=== PATIENT | male | born 1930 | race Caucasian/White ===

== ENCOUNTER 2016-08-17 01:43 | Emergency (ER) | payer MEDICARE, OTHER ==
[~2016-08-17 01:43] MED LIST: CEPH500C3 PO; FERR324T4; GLIP5; HYDR10TA16; LASI20TA; LEXA10TA; OMEP20CA5; ONDA4TAB7 OR; POTA-267; PRIN20TA2; PROM25SU8 PO; SIMV20; TERA10CA3; TETANUS/DIPHTHERIA TOXOID ADULT 0.5 ML VIAL IM ONE; UNKNOWN BP MED
--- NOTE | 2016-08-17 03:35 | PD ---
HPI Chief Complaint: head injury Time Seen by Provider: 03:08 Travel History International Travel<30 days: No Contact w/Intl Traveler<30days: No Traveled to known affect area: No History of Present Illness HPI 86-year-old male complains of bleeding from the back of the head. Patient states that he fell while walking tonight. Patient states that he hit the back of the head. Patient denies loss of consciousness. Patient denies any headache. Patient states that he has abrasion the top of the back of her head. Patient denies any visual change. Patient states that he has nausea but no vomiting. Patient denies any neck pain. Patient denies any chest pain or shortness of breath. Patient denies abdominal pain. Patient denies any focal weakness or numbness of the extremity. Patient denies any other injury. Patient states that he is not up-to-date with TD booster. Patient has history hypertension, diabetes, dyslipidemia. Patient states that he is not on any blood thinner. PFSH Past Medical History Cancer: Yes (COLON) High Cholesterol: Yes Diabetes: Yes Diminished Hearing: Yes (BILAT) Hypertension: Yes Kidney Stones: Yes Past Surgical History Abdominal Surgery: Yes (APPENDECTOMY,CHOLECYSTECTOMY,COLON RESECTION) Appendectomy: Yes Cholecystectomy: Yes Tonsillectomy: Yes Social History Alcohol Use: No Tobacco Use: No Substance Use: No Allergies-Medications (Allergen,Severity, Reaction): Coded Allergies: Venofer (Verified Allergy, Severe, 11/11/11) Reported Meds & Prescriptions Reported Meds & Active Scripts Active Keflex (Cephalexin Monohydrate) 500 Mg Cap 1 Tab PO Q6 5 Days Phenergan (Promethazine HCl) 25 Mg Tab 12.5-25 Mg PO Q6HPRN FOR NAUSEA/VOMITING Ondansetron Odt (Ondansetron HCl) 4 Mg Tab 4 Mg OR Q6HPRN Reported [Unknown Bp Med] Lortab 10/500 (Acetaminophen/Hydrocodone Bitart) 10 Mg/500 Mg Tab Lexapro (Escitalopram Oxalate) 10 Mg Tab Glucotrol (Glipizide) 5 Mg Tab Ferrous Sulfate 325 Mg Tab Prinivil (Lisinopril) 20 Mg Tab Klor-Con 10 (Potassium Chloride) 10 Meq Tab Lasix (Furosemide) 20 Mg Tab Prilosec (Omeprazole) 20 Mg Capcr Hytrin (Terazosin HCl) 10 Mg Cap Zocor (Simvastatin) 20 Mg Tab Review of Systems General / Constitutional: No: Fever Eyes: No: Visual changes HENT: No: Headaches Cardiovascular: No: Chest Pain or Discomfort Respiratory: No: Shortness of Breath Gastrointestinal: No: Abdominal Pain Genitourinary: No: Dysuria Musculoskeletal: No: Pain Skin: No Rash Neurologic: No: Weakness Psychiatric: No: Depression Endocrine: No: Polydipsia Hematologic/Lymphatic: No: Easy Bruising Physical Exam Narrative GENERAL: Well-nourished, well-developed patient. SKIN: Warm and dry. HEAD: Normocephalic. Patient has an abrasion on the upper part on the occipital area of the scalp. No active bleeding. EYES: No scleral icterus. No injection or drainage. Pupils 3 mm equal reactive. NECK: Supple, trachea midline. No JVD or lymphadenopathy. CARDIOVASCULAR: Regular rate and rhythm without murmurs, gallops, or rubs. RESPIRATORY: Breath sounds equal bilaterally. No accessory muscle use. GASTROINTESTINAL: Abdomen soft, non-tender, nondistended. MUSCULOSKELETAL: No cyanosis, or edema. BACK: Nontender without obvious deformity. No CVA tenderness. Neurologic exam: Patient's awake and alert oriented 3. No obvious focal neurological deficit. Data Data Orders Ct Brain W/O Iv Contrast(Rout) (08/17/16 ) Tetanus/Diphtheria Tox Adult (Tetanus/Di (08/17/16 01:15) MDM Medical Decision Making Medical Screen Exam Complete: Yes Emergency Medical Condition: Yes Interpretation(s) 3:[address] scan of brain negative acute pathology. Differential Diagnosis Differential diagnosis including abrasion, skull fracture, intracranial hemorrhage. Narrative Course 86-year-old male with head injury. Status post fall. Examination shows abrasion to the scalp. Polysporin ointment with dressing applied. TD booster given. Diagnosis Primary Impression: Closed head injury Qualified Code: S09.90XA - Closed head injury, initial encounter Additional Impression: Scalp abrasion Qualified Code: S00.01XA - Scalp abrasion, initial encounter Additional Instructions: Wound care daily. Polysporin ointment with dressing daily. Soap and water wash daily. Head trauma instructions given. Follow-up with personal physician. Return as needed. Med/Other Pt SpecificInfo: No Change to Meds Disposition: DISCHARGE HOME Condition: Stable Hiram Nava MD Aug 17, 2016 03:35
--- NOTE | 2016-08-17 09:06 | RADRPT ---
EXAM DATE/TIME: 08/17/2016 02:21 [facility] COMPARISON: No previous studies available for comparison. INDICATIONS : Trauma; fall. Small contusion to the back of the head. RADIATION DOSE: 36.62 CTDIvol (mGy) MEDICAL HISTORY : unable to obtain SURGICAL HISTORY : unable to obtain ENCOUNTER: Initial ACUITY: 1 day PAIN SCALE: 4/10 LOCATION: cranial TECHNIQUE: Multiple contiguous axial images were obtained of the head. Using automated exposure control and adj ustment of the mA and/or kV according to patient size, radiation dose was kept as low as reasonably a chievable to obtain optimal diagnostic quality images. FINDINGS: CEREBRUM: The ventricles are normal for age. No evidence of midline shift, mass lesion, hemorrhage or acute in farction. No extra-axial fluid collections are seen. POSTERIOR FOSSA: The cerebellum and brainstem are intact. The 4th ventricle is midline. The cerebellopontine angle i s unremarkable. EXTRACRANIAL: The visualized portion of the orbits is intact. A small soft tissue hematoma is seen on the vertex po steriorly and SKULL: The calvaria is intact. No evidence of skull fracture. CONCLUSION: 1. No acute intracranial abnormality. 2. Small soft tissue hematoma. Valdez Palma Jr., MD on August 17, 2016 at 2:39 Board Certified Radiologist. This report was verified electronically.
== END 2016-08-17 04:40 | disposition home or self-care (01) ==
LOC: NEPC 01:43
DX: S00.01XA Abrasion of scalp, initial encounter (principal); W01.0XXA Fall on same level from slipping, tripping and stumbling without subsequent striking against object, initial encounter; Y93.01 Activity, walking, marching and hiking
CPT/HCPCS: 70450; 90471